=== PATIENT | male | born 1995 | race Caucasian/White ===

== ENCOUNTER 2017-10-17 15:29 | Emergency (ER) | payer OTHER ==
[~2017-10-17] VITALS: Ht 175.3 cm; Wt 108.9 kg
[~2017-10-17 15:29] MED LIST: CYCL10TA9 PO; NAPR-243 PO
--- OUTSIDE RECORDS SUMMARY | 2017-10-17 15:34 | XMS REPORT | Continuity of Care Document ---
Author Author [facility] Organization [facility] Address Unknown Phone Unavailable Allergies There is no data. Medications There is no data. Problems There is no data. Procedures There is no data. Results There is no data. Encounters ACCT No. Visit Date/Time Discharge Status Pt. Type Provider Facility Loc./Unit Complaint [id number] 02/05/2013 21:49:00 02/05/2013 23:57:00 DIS Emergency [id number] 10/30/2015 14:16:00 ACT Unknown
--- OUTSIDE RECORDS SUMMARY | 2017-10-17 15:34 | XMS REPORT | Clinical Summary ---
Author Author Admin, E Organization All Address Unknown Phone Unavailable Allergies, Adverse Reactions, Alerts Allergy Name Reaction Description Start Date Severity Status Provider CODEINE Critical Active Nicholas Lock DO Conditions or Problems Problem Name Problem Code Onset Date Status Entry Date Provider Comment Standard Description Annotate Tinea cruris 110.3 Active Nicholas Lock DO Dermatophytosis of groin and perianal area Hip pain, left 719.45 Active Nicholas Lock DO Pain in joint involving pelvic region and thigh Medication List Medication Instructions Start Date Stop Date Generic Name NDC Status Provider Patient Instruction TRAMADOL HCL 50 MG TABS 1 po QID with ES tylenol prn pain TRAMADOL HCL 45997130207 Active Nicholas Lock DO Active TRAMADOL HCL 50 MG ORAL TABS Take 1 tab po by mouth twice a day TRAMADOL HCL 33979122663 No Longer Active Nicholas Lock DO Active LAMISIL 250 MG TAB 1 po qd for rash TERBINAFINE HCL 38601880528 Active Nicholas Lock DO Active TERBINAFINE HCL 1 % EXT CREA apply twice daily for three weeks to feet and groin TERBINAFINE HCL 98006552441 Active Nicholas Lock DO Active TRAMADOL HCL 50 MG ORAL TABS Take 1 tab po by mouth twice a day TRAMADOL HCL 50 MG ORAL TABS 836798 TRAMADOL HCL Inactive Vital Signs Date Name Value Unit Range Description blood pressure, diastolic - 8462-4 99 mm[Hg] BP farmer blood pressure, systolic - 8480-6 151 mm[Hg] BP sys pulse rate E&M - 8867-4 79 /min Heart rate temperature E&M 98.3 [degF] Body temperature weight E&M - 3141-9 221.5 [lb_av] Weight Measured blood pressure, diastolic - 8462-4 84 mm[Hg] BP farmer blood pressure, systolic - 8480-6 127 mm[Hg] BP sys height E&M - 8302-2 69 [in_us] Bdy height pulse rate E&M - 8867-4 80 /min Heart rate temperature E&M 97.8 [degF] Body temperature weight E&M - 3141-9 25.6 [lb_av] Weight Measured Encounters Code Encounter Date Provider Facility CPT-04512 Level 3 Est. 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
--- OUTSIDE RECORDS SUMMARY | 2017-10-17 15:34 | XMS REPORT | Clinical Summary ---
[...] with ES tylenol prn pain TRAMADOL HCL 98160924254 Active Nicholas Lock DO Active TRAMADOL HCL 50 MG ORAL TABS Take 1 tab po by mouth twice a day TRAMADOL HCL 27833202706 No Longer Active Nicholas Lock DO Active LAMISIL 250 MG TAB 1 po qd for rash TERBINAFINE HCL 23231486237 Active Nicholas Lock DO Active TERBINAFINE HCL 1 % EXT CREA apply twice daily for three weeks to feet and groin TERBINAFINE HCL 67381343459 Active Nicholas Lock DO Active TRAMADOL HCL 50 MG ORAL TABS Take 1 tab po by mouth twice a day TRAMADOL HCL 50 MG ORAL TABS 414172 TRAMADOL HCL Inactive Vital Signs Date Name [...] Measured Encounters Code Encounter Date Provider Facility CPT-85114 Level 3 Est. 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
[2017-10-17] MEDS ORDERED: OXC10TCR PO (16:08)
[2017-10-17] MEDS ORDERED: ASPI-808 PO (16:08)
--- NOTE | 2017-10-17 16:22 | ED General ---
General Chief Complaint: Lower Extremity Stated Complaint: LEFT LEG SWELLING Nursing Triage Note: pt reports l hip replacement 2 months ago and started having pain/swelling on 10/15/17. Nursing Sepsis Screen: No Definite Risk Source of Information: Patient Exam Limitations: No Limitations History of Present Illness Date Seen by Provider: Oct 17, 2017 Time Seen by Provider: 16:22 Initial Comments 22 yo male patient presents to the ED with c/o left thigh pain and swelling 2 days ago. patient states he had left hip replacement 2 months ago [place]. Denies fever, chills, numbness, or weakness. Location Injury Occurred: denies known recent injury Timing/Duration: 2-3 Days, Constant Modifying Factors: worse with Movement, worse with Other (worse with palpation) Allergies and Home Medications Allergies Coded Allergies: No Known Drug Allergies (Unverified , 02/05/13) Home Medications Cyclobenzaprine Hcl 10 Mg Tablet, 1 EACH PO Q8HR PRN FOR MUSCLE SPASMS Prescribed by: CHRISTOPHER TREVINO on 02/05/13 0834 Naproxen 500 Mg Tablet, 1 EACH PO BID, (Reported) Patient Home Medication List Home Medication List Reviewed: Yes Constitutional: No chills, No fever, No malaise EENTM: no symptoms reported Respiratory: No cough, No dyspnea on exertion, No phlegm, No short of breath, No wheezing Cardiovascular: No chest pain, No edema, No palpitations, No syncope Musculoskeletal: see HPI Skin: no symptoms reported Psychiatric/Neurological: No Symptoms Reported All Other Systems Reviewed Negative Unless Noted: Yes (Negative excepted noted.) Past Aywqrho-Tpvlwo-Plinmh Hx Patient Social History Alcohol Use: Denies Use Recreational Drug Use: No Smoking Status: Never a Smoker Recent Foreign Travel: No Contact w/Someone Who Travel: No Recent Infectious Disease Expo: No Physical Abuse: No Sexual Abuse: No Mistreated: No Fear: No Surgeries History of Surgeries: No (l hipx2) Surgeries: Joint Replacement Respiratory History of Respiratory Disorde: No Cardiovascular History of Cardiac Disorders: No Neurological History of Neurological Disord: No Reproductive System Sexually Transmitted Disease: No HIV/AIDS: No Gastrointestinal History of Gastrointestinal Di: No Musculoskeletal History of Musculoskeletal Dis: No (l hip replacement x2) Endocrine History of Endocrine Disorders: No Cancer History of Cancer: No Psychosocial History of Psychiatric Problem: No Suicide Risk Score: 0 Integumentary History of Skin or Integumenta: No Blood Transfusions History of Blood Disorders: No Adverse Reaction to a Blood Tr: No Reviewed Nursing Assessment Reviewed/Agree w Nursing PMH: Yes Family Medical History Significant Family History: No Pertinent Family Hx Physical Exam Vital Signs Vital Signs - First Documented 10/17/17 15:59 Temp 97.8 Pulse 91 Resp 18 B/P (MAP) 125/88 (100) Pulse Ox 97 Capillary Refill : Less Than 3 Seconds General Appearance: No Apparent Distress, WD/WN HEENT: PERRL/EOMI, Pharynx Normal Respiratory: Lungs Clear, Normal Breath Sounds, No Accessory Muscle Use, No Respiratory Distress Cardiovascular: Regular Rate, Rhythm, No Edema, No Murmur, Normal Peripheral Pulses Back: Normal Inspection Extremity: Normal Capillary Refill, Normal Range of Motion, No Calf Tenderness , No Pedal Edema, Other (left lateral thigh TTP without erythema or warmth. minimal swelling noted inferior to the well healed incision.) Neurologic/Psychiatric: Alert, Oriented x3, No Motor/Sensory Deficits, Normal Mood/Affect Skin: Normal Color, Warm/Dry Progress/Results/Core Measures Suspected Sepsis Recent Fever Within 48 Hours: No Infection Criteria Present: None New/Unexplained Altered Menta: No Sepsis Screen: No Definite Risk Sepsis Diagnosis: SIRS Temperature:97.8 Pulse: 91 Respiratory Rate: 18 Blood Pressure 125 /88 Mean: 100 Results/Orders My Orders Orders - JAMES GRADY Us Venous Lower Ext Lt (10/17/17 16:13) Ct Extremity Lower Left Wo (10/17/17 17:03) Vital Signs/I&O Vital Sign - Last 12Hours 10/17/17 10/17/17 15:59 18:27 Temp 97.8 Pulse 91 87 Resp 18 16 B/P (MAP) 125/88 (100) 132/71 Pulse Ox 97 99 Capillary Refill : Less Than 3 Seconds Blood Pressure Mean: 100 Diagnostic Imaging Diagonstic Imaging: Ultrasound Plain Films/CT/US/NM/MRI: leg Comments FINDINGS: The left common femoral vein, superficial femoral vein, profunda femoris, and popliteal veins are normal. These vessels show normal compressibility, color flow, and Doppler augmentation. The deep calf veins demonstrate no distinct intraluminal thrombus where seen. Ultrasound survey of the left hip incision region was also performed and demonstrated no fluid collections. IMPRESSION: Negative venous Doppler of the left lower extremity. Dictated on workstation # [id number] Reviewed: Reviewed by Me (radiology report reviewed by me) Diagonstic Imaging: CT Plain Films/CT/US/NM/MRI: leg Comments FINDINGS: Total left hip arthroplasty is in place and appears to be in good position, although artifact from the device limits evaluation. Note is made of surgical change in the lateral aspect of the left hip and subcutaneous tissues, however no focal fluid collection or significant hematoma is identified. Remainder of the thigh musculature is unremarkable. There is no evidence of fracture or orthopedic hardware complication. IMPRESSION: Postsurgical change with visualized incision lateral to the left hip. Otherwise, there is no evidence of acute abnormality or complication. Dictated on workstation # [id number] Reviewed: Reviewed by Me (radiology report reviewed by me) Departure Communication (Admissions) Progress Notes Patient seen and evaluated. Patient refuses pain medication at this time. 1800 all diagnostic findings discussed with the patient. reports patient has been increasing his activity the last several days and also slept on the left hip a couple of nights ago. she thinks this may have caused the pain and swelling. plan for dsch to home. Impression Impression: Primary Impression: Pain in left thigh Disposition: 01 HOME, SELF-CARE Condition: Improved Departure-Patient Inst. Decision time for Depature: 18:02 Referrals: NO,LOCAL PHYSICIAN (PCP/Family) Primary Care Physician Patient Instructions: NO INSTRUCTIONS GIVEN Add. Discharge Instructions: All discharge instructions reviewed with patient and/or family. Voiced understanding. Continue usual home medications. Tylenol Extra Strength over- the-counter as directed for pain. Ibuprofen 800 mg by mouth every 8 hours as needed for pain. Ice packs or heating pads as needed for pain. Follow-up with your orthopedic surgeon for recheck as an outpatient, call tomorrow morning for appointment time. Return to the emergency department for worsened symptoms, swelling, numbness, weakness, discoloration, redness, fever, or any other concerns. JAMES GRADY Oct 17, 2017 16:22
--- NOTE | 2017-10-17 17:01 | Diagnostic Imaging Report ---
EXAM: US VENOUS LOWER EXT LT INDICATION: Left hip replacement 2 months ago. Left leg pain. COMPARISON: None. TECHNIQUE: Duplex, raygoza-scale and color-flow imaging of the left lower extremity venous system was performed FINDINGS: The left common femoral vein, superficial femoral vein, profunda femoris, and popliteal veins are normal. These vessels show normal compressibility, color flow, and Doppler augmentation. The deep calf veins demonstrate no distinct intraluminal thrombus where seen. Ultrasound survey of the left hip incision region was also performed and demonstrated no fluid collections. IMPRESSION: Negative venous Doppler of the left lower extremity. Dictated by: Dictated on workstation # [id number]
--- NOTE | 2017-10-17 17:44 | Diagnostic Imaging Report ---
PROCEDURE: CT left lower extremity without contrast. TECHNIQUE: Multiple contiguous axial images were obtained through the left lower extremity without the use of intravenous contrast. Sagittal and coronal reformations were then performed. INDICATION: Pain and swelling lateral to the left hip and thigh. FINDINGS: Total left hip arthroplasty is in place and appears to be in good position, although artifact from the device limits evaluation. Note is made of surgical change in the lateral aspect of the left hip and subcutaneous tissues, however no focal fluid collection or significant hematoma is identified. Remainder of the thigh musculature is unremarkable. There is no evidence of fracture or orthopedic hardware complication. IMPRESSION: Postsurgical change with visualized incision lateral to the left hip. Otherwise, there is no evidence of acute abnormality or complication. Dictated by: Dictated on workstation # [id number]
[2017-10-17 18:27] VITALS: BP 132/71
== END 2017-10-17 18:27 | disposition home or self-care (01) ==
LOC: EDUNIT# 15:29 → ER 15:30
DX: M79.652 Pain in left thigh (principal); Z96.642 Presence of left artificial hip joint
CPT/HCPCS: 73700

== ENCOUNTER → 2018-04-30 | Outpatient (CLI) | payer OTHER ==
[~2018-04-30] MED LIST changes: +ASPI-808 PO; +OXC10TCR PO
--- NOTE | 2018-04-30 13:17 | Diagnostic Imaging Report ---
PROCEDURE: CT head without contrast. TECHNIQUE: Multiple contiguous axial images were obtained through the brain without the use of intravenous contrast. INDICATION: Headache for one month. There is no previous study for comparison. FINDINGS: Ventricles and sulci are within normal limits for size and there is no evidence of hemorrhage. There is mild low-density within the left occipital pole. This could be in part related to artifact. There is no abnormal mass effect or shift of midline structures. The visualized paranasal sinuses are clear. The calvarium is intact. IMPRESSION: Questionable low-density in the left occipital pole which could be due to artifact. If this correlates with patient's symptoms, MRI is suggested for assessment. Dictated by: Dictated on workstation # [id number]
== END ==
LOC: RAD 13:02
PROVIDERS: ATTEND Nurse Practitioner Family
DX: G44.219 Episodic tension-type headache, not intractable (principal)
CPT/HCPCS: 70450

== ENCOUNTER 2018-11-07 10:08 | Emergency (ER) | payer OTHER ==
[~2018-11-07] VITALS: Ht 175.3 cm; Wt 108.9 kg
--- OUTSIDE RECORDS SUMMARY | 2018-11-07 10:24 | XMS REPORT | Continuity of Care Document ---
Author Author [facility] Organization [facility] Address Unknown Phone Unavailable Care Team Providers Care Digital Marketing Consultant Name Role Phone NO, LOCAL PHYSICIAN PP Unavailable Insurance Providers Payer Name Policy Number Subscriber Name Relationship Medicaid [place] [id number] Hayden Bob 01 Self / Same As Patient Work Comp [id number] Hayden Bob Self / Same As Patient Advance Directives Directive Response Recorded Date Advance Directives N 02/05/13 10:01pm Problems No Known Problems or Medical conditions. Social History History Response Recorded Date/Time Alcohol Use Denies Use 02/05/13 10:01pm Recreational Drug Use N 02/05/13 10:01pm Sexually Transmitted Disease N 02/05/13 10:01pm HIV/AIDS N 02/05/13 10:01pm Allergies, Adverse Reactions, Alerts Allergen Type Severity Reaction Last Updated No Known Drug Allergies 02/05/13 Medications Medication Dose Units Route Sig Qty Days Cyclobenzaprine HCl (Cyclobenzaprine Hcl) 1 Each PO Q8HR PRN 15 Naproxen (Naprosyn) 1 Each PO BID Response Recorded Date/Time Status not known Unknown Results No Known Relevant Diagnostic Tests, Laboratory Data and/or Discharge Summary. Encounters Encounter Location Date/Time Departed Emergency Room [facility] 9:49pm
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
[2018-11-07] MEDS ORDERED: METHOCARBAMOL 750 MG (ROBAXIN) TAB PO ONE (10:45)
--- NOTE | 2018-11-07 10:50 | ED Back Pain ---
General Chief Complaint: Back Problems Stated Complaint: BACK PAIN Nursing Triage Note: Back pain for 2-3wks, Pain worse this morning. Total left hip replacement Aug 2017. Has a history of back pain for the past 2-3wks. Nursing Sepsis Screen: No Definite Risk Source of Information: Patient Exam Limitations: No Limitations History of Present Illness Date Seen by Provider: Nov 07, 2018 Time Seen by Provider: 10:48 Initial Comments To ER with left-sided back pain just beneath the left scapula for about 2-3 weeks. Worse this morning. Had a total hip replacement in August 2017 in [place]. No history of back pain prior to 2-3 weeks ago. He cannot recall any particular incident that triggered this but he states that at the onset of this he did have about a one-week long cough which he attributed to allergies. He states he only has the shortness of breath when the pain comes. He describes the pain as someone ripping the muscle out of that area. He took ibuprofen at home this morning, Ultram at home this morning with some minimal relief. He follows with the [facility]. Location: Paraspinous Muscles, T-Spine Timing/Duration: Other (2-3 weeks) Severity: Moderate Pain/Injury Location: Back Method of Injury: Unknown Associated Symptoms: denies symptoms Allergies and Home Medications Allergies Coded Allergies: No Known Drug Allergies (Unverified , 02/05/13) Home Medications Cyclobenzaprine Hcl 10 Mg Tablet, 1 EACH PO Q8HR PRN FOR MUSCLE SPASMS Prescribed by: CHRISTOPHER TREVINO on 02/05/13 8038 Naproxen 500 Mg Tablet, 1 EACH PO BID, (Reported) Patient Home Medication List Home Medication List Reviewed: Yes Review of Systems Constitutional: see HPI; No chills, No fever EENTM: see HPI Respiratory: no symptoms reported; No cough Cardiovascular: no symptoms reported Genitourinary: no symptoms reported Musculoskeletal: see HPI Skin: no symptoms reported Psychiatric/Neurological: No Symptoms Reported Past Khoksbt-Ormyaw-Bwhlml Hx Patient Social History Recent Foreign Travel: No Contact w/Someone Who Travel: No Recent Infectious Disease Expo: No Past Medical History Surgeries: No (l hipx2) Joint Replacement Respiratory: No Cardiac: No Neurological: No Sexually Transmitted Disease: No HIV/AIDS: No Gastrointestinal: No Musculoskeletal: No (l hip replacement x2) Endocrine: No Cancer: No Psychosocial: No Integumentary: No Blood Disorders: No Adverse Reaction/Blood Tranf: No Family Medical History No Pertinent Family Hx Physical Exam Vital Signs Vital Signs - First Documented 11/07/18 10:23 Pulse 79 Resp 20 B/P (MAP) 138/92 (107) Pulse Ox 97 O2 Delivery Room Air Capillary Refill : Less Than 3 Seconds Height, Weight, BMI Height: 5'9.00" Weight: 240lbs. oz. 108.213691nh; BMI Method:Stated General Appearance: No Apparent Distress, WD/WN HEENT: PERRL/EOMI, TMs Normal Neck: Full Range of Motion, Normal Inspection Respiratory: No Accessory Muscle Use, No Respiratory Distress Gastrointestinal: Normal Bowel Sounds, Non Tender, Soft Extremity: Normal Capillary Refill, Normal Inspection Neurologic/Psychiatric: Alert, Oriented x3, No Motor/Sensory Deficits Progress/Results/Core Measures Results/Orders My Orders Orders - GEE BADILLO APRN Chest Pa/Lat (2 View) (11/07/18 10:45) Methocarbamol Tablet (Robaxin Tablet) (11/07/18 10:45) Vital Signs/I&O 11/07/18 10:23 Pulse 79 Resp 20 B/P (MAP) 138/92 (107) Pulse Ox 97 O2 Delivery Room Air Blood Pressure Mean: 107 Departure Impression Primary Impression: Muscle spasm Disposition: 01 HOME, SELF-CARE Condition: Stable Departure-Patient Inst. Decision time for Depature: 11:14 Referrals: NO,LOCAL PHYSICIAN (PCP/Family) Primary Care Physician Patient Instructions: Muscle Spasms (DC) Add. Discharge Instructions: 1. Warm compresses to this area would be more helpful than ice. Muscle relaxers as directed as well as anti-inflammatories such as ibuprofen or naproxen. Gentle massage this area might also be helpful. Follow-up with your doctor within 1 week for recheck if no improvement. All discharge instructions reviewed with patient and/or family. Voiced understanding. Scripts Methocarbamol (Robaxin-750) 750 Mg Tablet 750 MG PO Q4H PRN for PAIN-MODERATE TO SEVERE, #30 TAB Prov: GEE BADILLO APRN 11/07/18 Images Torso/Trunk 1 - Tenderness GEE BADILLO APRN Nov 07, 2018 10:50
[2018-11-07] MEDS ORDERED: METH-313 PO (11:16)
[2018-11-07 11:21] VITALS: BP 136/86
--- NOTE | 2018-11-07 11:24 | Diagnostic Imaging Report ---
INDICATION: Back pain. Time of exam: 11:02 AM No prior studies are available for comparison. The heart size is normal. The pulmonary vascularity is unremarkable. The lungs are clear. No infiltrate, effusion or pneumothorax is detected. Impression: No acute cardiopulmonary process is detected. Dictated by: Dictated on workstation # [id number]
== END 2018-11-07 11:21 | disposition home or self-care (01) ==
LOC: EDUNIT# 10:08 → ER 10:09
DX: M62.830 Muscle spasm of back (principal); Z96.642 Presence of left artificial hip joint
CPT/HCPCS: 71046

== ENCOUNTER 2019-04-07 22:50 | Emergency (ER) | payer OTHER ==
[~2019-04-07] VITALS: Ht 175 cm; Wt 113.0 kg
[~2019-04-07 22:50] MED LIST changes: +METH-313 PO
--- NOTE | 2019-04-08 00:43 | ED Lower Extremity ---
General Chief Complaint: Lower Extremity Stated Complaint: L HIP PAIN Nursing Triage Note: PT STATES HE SUFFERED A HIP INJURY WHEN HE WAS 16 Y/O AT [facility], REQUIRED A HIP REPLACEMENT. PT STATES HE HAS BEEN HAVING ONGOING ISSUES WITH HIS HIP SINCE THE SURGERY, STATES THAT TODAY HE WAS SITTING AT HIS COMPUTER DESK WHEN HE FELT A SENSATION IN HIS HIP LIKE IT TEMPORARILY CAME OUT OF SOCKET. PT STATES HE HAS HAD SHOOTING SENSATIONS AND NUMBNESS THAT RADIATES TO HIS TOES. Nursing Sepsis Screen: No Definite Risk Source: patient History of Present Illness Date Seen by Provider: Apr 08, 2019 Time Seen by Provider: 00:01 Initial Comments PT ARRIVES VIA POV FROM HOME PT STATES "I HAD A SENSATION OF IMMENSE PAIN WHERE IT FELT LIKE MY ARTIFICIAL HIP SLID OUT AND BACK IN" STATES HE WAS SITTING WITH HIS LEFT LEG OUT, AND READJUSTED HIS LEFT LEG AND BROUGHT IT INWARD, WHEN THE PAIN STARTED PAIN LASTED APPROXIMATELY 4-5 MINUTES, AND IS GONE NOW OCCURRED AROUND 2230 TONIGHT AT HOME STATES HE HAD THE SAME THING HAPPEN ABOUT 2 WEEKS AGO, AND WENT TO HIS PCP AT THE [facility] IN [place]. NO XRAYS WERE DONE. PT STATES HE WAS TOLD THAT IT WAS POSSIBLY MUSCLE SPASMS AND WAS GIVEN RX'S FOR MELOXICAM AND CYCLOBENZAPRINE. STATES HE HAS ONLY TAKEN A TOTAL OF 1 OR 2 MELOXICAM, AND HAS NOT TAKEN ANY CYCLOBENZAPRINE. 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 THOSE SYMPTOMS STARTED AGAIN WITH THE EPISODE TONIGHT PCP: [facility] IN [place] AND IN [place] Allergies and Home Medications Allergies Coded Allergies: No Known Drug Allergies (Unverified , 02/05/13) Home Medications Cyclobenzaprine Hcl 10 Mg Tablet, 1 EACH PO Q8HR PRN FOR MUSCLE SPASMS Prescribed by: CHRISTOPHER TREVINO on 02/05/13 1358 Methocarbamol 750 Mg Tablet, 750 MG PO Q4H PRN for PAIN-MODERATE TO SEVERE Prescribed by: GEE BADILLO on 11/07/18 1116 Naproxen 500 Mg Tablet, 1 EACH PO BID, (Reported) Patient Home Medication List Home Medication List Reviewed: Yes Review of Systems Constitutional: no symptoms reported Gastrointestinal: no symptoms reported Genitourinary: no symptoms reported Musculoskeletal: see HPI Skin: no symptoms reported; No rash Psychiatric/Neurological: See HPI Past Ycfrdms-Gdnsvo-Qaluqo Hx Patient Social History Alcohol Use: Denies Use Recreational Drug Use: No Smoking Status: Never a Smoker 2nd Hand Smoke Exposure: No Recent Foreign Travel: No Contact w/Someone Who Travel: No Recent Infectious Disease Expo: No Immunizations Up To Date Tetanus Booster (TDap): Less than 5yrs PED Vaccines UTD: No Past Medical History Surgeries: Yes (LEFT HIP SURGERIES, INCLUDING LEFT HIP REPLACMENT 08/2017) Joint Replacement, Orthopedic Respiratory: No Cardiac: No Neurological: No Genitourinary: No Gastrointestinal: No Musculoskeletal: Yes (CHRONIC LEFT HIP PAIN SINCE AGE 16, S/P MULTIPLE LEFT HIP SURGERIES, INCLUDING LEFT HIP REPLACEMENT 08/2017) Endocrine: No HEENT: No Cancer: No Psychosocial: No Integumentary: No Blood Disorders: No Adverse Reaction/Blood Tranf: No Family Medical History No Pertinent Family Hx Physical Exam Vital Signs Vital Signs - First Documented 04/07/19 23:09 Temp 37.8 Pulse 85 Resp 20 B/P (MAP) 143/90 (107) Pulse Ox 96 O2 Delivery Room Air Capillary Refill : Less Than 3 Seconds Height, Weight, BMI Height: 5'9.00" Weight: 240lbs. oz. 108.561963xv; 36.00 BMI Method:Stated General Appearance: WD/WN, no apparent distress, other (AMBULATES INTO ER WITH VERY SLIGHT LIMP ON LEFT. PT IS TEXTING/PLAYING AND TALKING ON PHONE THROUGHOUT ER STAY. ) Cardiovascular: normal peripheral pulses Back: normal inspection Hips: left hip other (MILD TENDERNESS TO LEFT HIP. NO DEFORMITY, NO SIGNIFICANT SWELLING, NO REDNESS OR BRUISING. 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 PT DECLINES ALL MEDICATIONS PT STATES [facility] Diagnostic Imaging Comments XRAYS LEFT HIP AND PELVIS--HARDWARE IS INTACT AND IN PROPER ALIGNMENT. NO ACUTE PROCESS. PENDING RADIOLOGIST REVIEW Reviewed: Reviewed by Me Departure Impression Primary Impression: EXACERBATION OF CHRONIC LEFT HIP PAIN Disposition: 01 HOME, SELF-CARE Condition: Stable Departure-Patient Inst. Referrals: NO,LOCAL PHYSICIAN (PCP/Family) Primary Care Physician Patient Instructions: Hip Pain (DC) Add. Discharge Instructions: CONTINUE YOUR MELOXICAM EVERY DAY TAKE CYCLOBENZAPRINE NEEDED FOR MUSCLE SPASMS--DO NOT DRIVE OR WORK WHEN YOU HAVE TAKEN THIS MEDICATION [facility] FOR [facility]THER CARE All discharge instructions reviewed with patient and/or family. Voiced understanding. CHRISTOPHER TREVINO DO Apr 08, 2019 00:43
[2019-04-08 00:49] VITALS: BP 125/93
--- NOTE | 2019-04-08 07:28 | Diagnostic Imaging Report ---
Indication: Hip injury years ago. Left hip prosthesis. Prior surgeries and persistent problems with the hip. [place] possible dislocation of the hip joint today. Shooting sensations and numbness into the toes. Examination: Pelvis/left hip 04/08/2019 Findings: Frontal pelvis with 2 views of the left hip. There is a total hip arthroplasty which appears intact, no evidence for loosening, no dislocation seen. The right hip joint is intact. Remaining visualized osseous structures unremarkable. Impression: 1. Unremarkable appearance of the prosthesis. No acute abnormality. Dictated by: Dictated on workstation # [id number]
== END 2019-04-08 00:49 | disposition home or self-care (01) ==
LOC: EDUNIT# 22:50 → ER 22:51
DX: M25.552 Pain in left hip (principal); G89.29 Other chronic pain; Z96.642 Presence of left artificial hip joint

== ENCOUNTER 2019-09-24 23:23 | Emergency (ER) | payer OTHER ==
[~2019-09-24] VITALS: Ht 175 cm; Wt 113.0 kg
--- NOTE | 2019-09-24 23:59 | ED Lower Extremity ---
General Chief Complaint: Lower Extremity Stated Complaint: LEFT LEG PAIN Source: patient Exam Limitations: no limitations History of Present Illness Date Seen by Provider: Sep 24, 2019 Time Seen by Provider: 23:40 Initial Comments Patient presents to ER by private conveyance with chief complaint that at around 1600 today he was walking and his left leg gave out from underneath him and he fell downwards rotating his left knee and ankle outwards. He been having some pain shooting from his ankle up to the mid thigh since then. 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 He is followed by primary care at the [facility] in [place]. 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 Patient's posterior be taking meloxicam daily for pain but he says he does not like to take any medications unless he needs them. He has taken 2 tablets of tramadol today since his fall and said the first one helped moderately and the second one did not do much. He has not had any NSAIDs today. He is not having any numbness or tingling. No worsening weakness in his left leg. He still in outpatient physical therapy 3 days a week. Allergies and Home Medications Allergies Coded Allergies: No Known Drug Allergies (Unverified , 02/05/13) Home Medications Cyclobenzaprine Hcl 10 Mg Tablet, 1 EACH PO Q8HR PRN FOR MUSCLE SPASMS Prescribed by: CHRISTOPHER TREVINO on 02/05/13 2353 Methocarbamol 750 Mg Tablet, 750 MG PO Q4H PRN for PAIN-MODERATE TO SEVERE Prescribed by: GEE BADILLO on 11/07/18 1116 Naproxen 500 Mg Tablet, 1 EACH PO BID, (Reported) Patient Home Medication List Home Medication List Reviewed: Yes Review of Systems Constitutional: No chills, No diaphoresis EENTM: No ear pain, No eye pain Respiratory: No cough, No short of breath Cardiovascular: No Hx of Intervention, No palpitations Gastrointestinal: No abdominal pain, No constipation, No diarrhea Genitourinary: No discharge, No dysuria Musculoskeletal: see HPI; No back pain; joint pain Past Sdksnuh-Dxotjj-Wytvui Hx Patient Social History Alcohol Use: Denies Use Recreational Drug Use: No Smoking Status: Never a Smoker 2nd Hand Smoke Exposure: No Recent Foreign Travel: No Contact w/Someone Who Travel: No Recent Hopitalizations: No Physical Abuse: No Sexual Abuse: No Mistreated: No Fear: No Immunizations Up To Date Tetanus Booster (TDap): Less than 5yrs PED Vaccines UTD: No Seasonal Allergies Seasonal Allergies: No Past Medical History Surgeries: Yes (LEFT HIP SURGERIES, INCLUDING LEFT HIP REPLACMENT 08/2017) Joint Replacement, Orthopedic Respiratory: No Cardiac: No Neurological: No Sexually Transmitted Disease: No HIV/AIDS: No Genitourinary: No Gastrointestinal: No Musculoskeletal: Yes Endocrine: No HEENT: No Cancer: No Psychosocial: No Integumentary: No Blood Disorders: No Adverse Reaction/Blood Tranf: No Family Medical History No Pertinent Family Hx Physical Exam Vital Signs Vital Signs - First Documented 09/24/19 23:41 Temp 36.6 Pulse 83 Resp 20 B/P (MAP) 143/89 (107) O2 Delivery Room Air Capillary Refill : Height, Weight, BMI Height: 5'9.00" Weight: 240lbs. oz. 108.921751kb; 36.00 BMI Method:Stated General Appearance: WD/WN, mild distress HEENT: PERRL/EOMI, pharynx normal Neck: full range of motion, normal inspection Cardiovascular: normal peripheral pulses, regular rate, rhythm Respiratory: no respiratory distress, no accessory muscle use Hips: bilateral hip non-tender, bilateral hip normal inspection, bilateral hip normal range of motion, bilateral hip no evidence of injury Legs: bilateral leg normal inspection, bilateral leg normal range of motion; left leg bone tenderness (bilateral anterior tibial plateau) Knees: right knee non-tender (anterior tibial plateau tenderness to palpation. Patella nontender.); bilateral knee normal inspection, bilateral knee normal range of motion; right knee no evidence of injury; left knee bone tenderness (anterior tibial plateau left leg) Ankles: right ankle non-tender, right ankle normal inspection; bilateral ankle normal range of motion; right ankle no evidence of injury; left ankle joint effusion (mild) Feet: bilateral foot non-tender, bilateral foot normal inspection, bilateral foot normal range of motion, bilateral foot no evidence of injury Neurologic/Tendon: normal sensation, normal motor functions, normal tendon functions, responds to pain Neurologic/Psychiatric: alert, normal mood/affect, oriented x 3, other (left lower extremity 4 out of 5 motor strength compared to right 5 out of 5.) Skin: normal color, warm/dry Progress/Results/Core Measures Results/Orders My Orders Orders - BABAR FOWLER Ketorolac Injection (Toradol Injection) (09/25/19 00:00) Knee, Left, 3 Views (09/25/19 00:01) Ankle, Left, 3 Views (09/25/19 00:01) Hip, Left, 2 Views (09/25/19 00:01) Medications Given in ED Current Medications Medications Dose Ordered Sig/Fredy Route Start Time Stop Time Status Last Admin Dose Admin Ketorolac Tromethamine 60 mg ONCE ONCE IM 09/25/19 00:00 09/25/19 00:01 DC 09/25/19 00:01 60 MG Vital Signs/I&O 09/24/19 23:41 Temp 36.6 Pulse 83 Resp 20 B/P (MAP) 143/89 (107) O2 Delivery Room Air Progress Progress Note : Time: 00:02 Progress Note Plan to image his left hip since he has baseline tenderness there and make sure the hardware is in good position. Plan to x-ray his left knee where he is having most of his complaints and since he's having a small joint effusion in his left ankle we will get an x-ray of that as well. Most likely this is a soft tissue injury with possible nerve compression causing the pain that radiates from his ankle back up his leg. We'll give him Toradol for his pain. We have explained this plan and the patient is in agreement at this time. Diagnostic Imaging Diagonstic Imaging: Xray Plain Films/CT/US/NM/MRI: hip (left) Comments Hardware is in good position. No acute osseous abnormality. Reviewed: Reviewed by Me Diagonstic Imaging: Xray Plain Films/CT/US/NM/MRI: knee (left) Comments No acute osseous abnormality. Reviewed: Reviewed by Me Diagonstic Imaging: Xray Plain Films/CT/US/NM/MRI: ankle (left) Comments No acute osseous abnormalities. Reviewed: Reviewed by Me Departure Impression Primary Impression: Pain of left lower extremity due to injury Disposition: HOME, SELF-CARE Condition: Stable Departure-Patient Inst. Decision time for Depature: 00:52 Referrals: NO,LOCAL PHYSICIAN (PCP/Family) Primary Care Physician Patient Instructions: Knee Sprain (DC) Add. Discharge Instructions: Wrap your knee in an Yamil bandage for compression. Keep the leg elevated above the level of your heart for the next day or 2 when not in use. Ice for the first 1-2 days applied to the site of pain. 20 minutes on every 4 hours while awake. Meloxicam as prescribed for the next 1-2 weeks. Tramadol as necessary for breakthrough pain. All discharge instructions reviewed with patient and/or family. Voiced understanding. Scripts Hydrocodone/Acetaminophen (Hydrocodone/Acetaminophen 5 MG/325 MG TAB) 1 Each Tablet 1 TAB PO Q4-6HR for Pain MDD 10 TABS, #8 TAB 0 Refills Prov: BABAR FOWLER 09/25/19 BABAR FOWLER Sep 24, 2019 23:59
[2019-09-25] MEDS ORDERED: KETOROLAC 60 MG/2 ML VIAL IM ONE
[2019-09-25] MEDS ORDERED: HYDR-4226 PO (00:58)
[2019-09-25] MEDS ORDERED: RX-HYDROCODONE/APAP 5/325 MG #4 TAB PK PO PRN (01:00)
[2019-09-25 01:14] VITALS: BP 139/82
--- NOTE | 2019-09-25 06:01 | Diagnostic Imaging Report ---
INDICATION: Left knee pain COMPARISON: None FINDINGS: 3 views of the left knee demonstrate no fracture or dislocation. Articular surfaces are normal. No joint effusion seen. IMPRESSION: Negative left knee Dictated by: Dictated on workstation # [id number]
--- NOTE | 2019-09-25 06:17 | Diagnostic Imaging Report ---
INDICATION: Left hip surgery, leg pain COMPARISON: 04/08/2019 FINDINGS: Two views of the left hip demonstrate a well-seated stable appearing left hip arthroplasty. No periprosthetic fracture or loosening is seen. There is no osseous lesion. IMPRESSION: Stable left hip arthroplasty Dictated by: Dictated on workstation # [id number]
--- NOTE | 2019-09-25 06:39 | Diagnostic Imaging Report ---
INDICATION: Left ankle pain COMPARISON: None FINDINGS: 3 views of the left ankle demonstrate no fracture or dislocation. Articular surfaces are normal. IMPRESSION: Negative left ankle Dictated by: Dictated on workstation # [id number]
--- OUTSIDE RECORDS SUMMARY | 2019-09-27 00:21 | XMS REPORT | Continuity of Care Document ---
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 11/07/2018 GEE BADILLO APRN Ot M53 .3 SACROCOCCYGEAL DISORDERS, NOT ELSEWHERE 11/07/2018 GEE BADILLO APRN Ot M62.830 MUSCLE SPASM OF BACK 11/07/2018 GEE BADILLO APRN Ot Z96.642 PRESENCE OF LEFT ARTIFICIAL HIP JOINT 11/09/2018 GEE BADILLO APRN Ot M53 .3 SACROCOCCYGEAL DISORDERS, NOT ELSEWHERE 11/09/2018 GEE BADILLO APRN Ot M62.830 MUSCLE SPASM OF BACK 11/09/2018 GEE BADILLO APRN Ot Z96.642 PRESENCE OF LEFT ARTIFICIAL HIP JOINT 04/08/2019 [place] CHRISTOPHER LOPEZ Ot G89.29 OTHER CHRONIC PAIN 04/08/2019 [place] CHRISTOPHER LOPEZ Ot M25.552 PAIN IN LEFT HIP 04/08/2019 [place] CHRISTOPHER LOPEZ Ot Z96.642 PRESENCE OF LEFT ARTIFICIAL HIP JOINT 04/10/2019 [place] CHRISTOPHER LOPEZ Ot G89.29 OTHER CHRONIC PAIN 04/10/2019 [facility], CHRISTOPHER Conrad Ot M25.552 PAIN IN LEFT HIP 04/10/2019 [facility], CHRISTOPHER Conrad Ot Z96.642 PRESENCE OF LEFT ARTIFICIAL HIP JOINT Procedures There is no data. Results There is no data. Encounters ACCT No. Visit Date/Time Discharge Status Pt. Type Provider Facility Loc./Unit Complaint [id number] 07/24/2019 12:28:11 Document Registration [id number] 07/19/2019 00:44:58 Document Registration [id number] 07/05/2019 13:39:51 Document Registration [id number] 07/23/2019 11:54:20 07/23/2019 23:59: 59 CLS Outpatient Jefferson Ernst [id number] 07/05/2019 09:14:54 07/05/2019 23:59: 59 CLS Outpatient Jefferson Ernst [id number] 10/30/2015 14:16:00 [place] Unknown [id number] 09/24/2019 23:28:00 020 01:14:00 DIS Emergency BABAR FOWLER MD [facility] ER LEFT LEG PAIN [id number] 04/07/2019 22:51:00 019 00:49:00 [facility] L HIP PAIN [id number] 11/07/2018 10:09:00 019 11:21:00 DIS Emergency GEE BADILLO APRN [facility] ER BACK PAIN [id number] 04/30/2018 13:02:00 018 23:59:59 CLS Outpatient CHANTEL MAYES [facility] RAD HEADACHES [id number] 10/17/2017 15:30:00 018 18:27:00 DIS Emergency JAMES GARCIA [facility] ER LEFT LEG SWELLING [id number] 02/05/2013 21:49:00 013 23:57:00 DIS Emergency CHRISTOPHER TREVINO DO [facility] ER R ARM INJ
== END 2019-09-25 01:14 | disposition home or self-care (01) ==
LOC: EDUNIT# 23:23 → ER 23:28
DX: S89.92XA Unspecified injury of left lower leg, initial encounter (principal); Z96.642 Presence of left artificial hip joint; W18.39XA Other fall on same level, initial encounter
CPT/HCPCS: 73502; 73562; 73610